=== PATIENT | male | born 1955 | race Caucasian/White ===

== ENCOUNTER 2017-11-20 06:51 | Emergency (ER) | payer BC ==
[2017-11-20] MEDS ORDERED: TETRACAINE HCL 0.5% 2ML OPTH ONE (07:01)
[2017-11-20] MEDS ORDERED: FLUORESCEIN SODIUM 0.6 MG/WRAP ONE (07:01)
[2017-11-20] MEDS ORDERED: TETANUS & DIPHTHERIA TOX,ADULT 0.5 ML VIAL ONE (07:02)
--- NOTE | 2017-11-20 07:18 | ER ---
Nurse's Notes [facility] Name: Koffi Ga Age: 62 yrs Sex: Male : 1955 Arrival Date: 11/20/2017 Time: 06:53 Bed 16 Private MD: Diagnosis: Injury of conjunctiva and corneal abrasion without foreign body Presentation: 11/20 07:04 Presenting complaint: Patient states: he was working in the yard yesterday and got bb something in his right eye, eye is still scratchy and reddened today. Transition of care: patient was not received from another setting of care. Onset of symptoms was November 19, 2017. Risk Assessment: Do you want to hurt yourself or someone else? Patient reports no desire to harm self or others. Initial Sepsis Screen: Does the patient meet any 2 criteria? No. Patient's initial sepsis screen is negative. Does the patient have a suspected source of infection? No. Patient's initial sepsis screen is negative. Care prior to arrival: None. 07:04 Method Of Arrival: Ambulatory bb 07:04 Acuity: KAMILA 4 bb Historical: - Allergies: 07:10 No Known Allergies; bb - Home Meds: 07:10 uridiol [Active]; levothyroxine oral [Active]; Nexium Oral [Active]; chondroitin bb glucosamine [Active]; tumeric [Active]; - PMHx: 07:10 Hypothyroidism; biliary cirrhosis; Cataracts; bb - PSHx: 07:10 thyroid surgery; Cholecystectomy; Tonsillectomy; orichectomy; elbow; Knee surgery; jaw; bb shoulder; - Immunization history:: Adult Immunizations up to date. - Social history:: Smoking status: Patient/guardian denies using tobacco, Patient uses alcohol, occasionally. Patient/guardian denies using street drugs. - Ebola Screening: : No symptoms or risks identified at this time. Screenin:30 Abuse screen: Denies threats or abuse. Denies injuries from another. Nutritional ph screening: No deficits noted. Tuberculosis screening: No symptoms or risk factors identified. Fall Risk None identified. Assessment: 07:15 General: Appears in no apparent distress. uncomfortable, well groomed, Behavior is ph calm, cooperative, appropriate for age. Pain: Complains of pain in right eye. Neuro: Level of Consciousness is awake, alert, obeys commands, Oriented to person, place, time, situation. Cardiovascular: Capillary refill < 3 seconds Patient's skin is warm and dry. Respiratory: Airway is patent Respiratory effort is even, unlabored, Respiratory pattern is regular, symmetrical. EENT: Eyes are tearing on right eye Sclera/Cornea are reddened in right eye. Derm: Skin is intact, is healthy with good turgor, Skin is pink, warm \T\ dry. Musculoskeletal: Circulation, motion, and sensation intact. Range of motion: intact in all extremities. Vital Signs: 07:10 BP 134 / 75; Pulse 57; Resp 16 S; Temp 98.6(O); Pulse Ox 98% on R/A; Weight 117.93 kg bb (R); Height 6 ft. 0 in. (182.88 cm) (R); Pain 2/10; 07:10 Body Mass Index 35.26 (117.93 kg, 182.88 cm) bb Visual Acuity: 07:10 Left Eye Visual acuity 20/20, Pupil size 4 mm, ; Right Eye Visual acuity 20/100, Pupil bb size 4 mm, ; Both Eyes Visual acuity 20/25; With Lenses; ED Course: 06:53 Patient arrived in ED. es 06:55 Maria Del Carmen Rock FNP-C [facility]. snw 06:55 Zachary Prado MD is Attending Physician. snw 07:05 Triage completed. bb 07:05 Assist provider with eye exam of right eye. using fluorescein stain, Performed by homero MINOR Patient tolerated well. 07:10 Arm band placed on Patient placed in an exam room, on a stretcher, on pulse oximetry. bb Family accompanied patient. 07:17 Gretta Barrera MD is Referral Physician. snw 07:19 France Adan RN is Primary Nurse. ph 07:31 Patient has correct armband on for positive identification. Bed in low position. Call ph light in reach. Side rails up X 1. Pulse ox on. NIBP on. 07:36 Patient did not have IV access during this emergency room visit. 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 Exp: ao 01/17/2020. Lot #: [id number]. } Route: IM; Site: left deltoid; 07:30 Follow up: Response: No adverse reaction ph 07:08 Drug: Tetracaine Drops 0.5 % 1 drops {Note: By NP. Maria Del Carmen} Route: Ophthalmic; Site: ao right eye; 07:30 Follow up: Response: No adverse reaction ph 07:08 Drug: Fluorescein Strip 1 strip {Note: By BAKARI Joyce.} Route: Ophthalmic; Site: right ao eye; 07:29 Follow up: Response: No adverse reaction ph 07:29 Drug: ERYTHromycin Ointment 1 application Route: Ophthalmic; Site: right eye; ph 07:30 Follow up: Response: No adverse reaction ph Outcome: 07:17 Discharge ordered by MD. snw 07:36 Discharged to home ambulatory, with significant other. ph 07:36 Condition: good 07:36 Discharge instructions given to patient, Instructed on discharge instructions, follow up and referral plans. medication usage, Demonstrated understanding of instructions, follow-up care, medications, Prescriptions given X 2. 07:36 Patient left the ED. ph Signatures: Maria Del Carmen Rock, REGISTERED NURSE CARDIAC TELEMETRY-C REGISTERED NURSE CARDIAC TELEMETRY-Csnw Janna Snell Brenda, RN RN France Garza RN RN ph Damien Shepard RN RN ao
--- NOTE | 2017-11-20 07:18 | EDPHYS ---
Physician Documentation [facility] Name: Koffi Ga Age: 62 yrs Sex: Male : 1955 Arrival Date: 11/20/2017 Time: 06:53 Bed 16 Private MD: ED Physician Zachary Prado HPI: 11/20 07:15 This 62 yrs old Male presents to ER via Ambulatory with complaints of right snw eye irritation. 07:15 The patient is experiencing foreign body sensation, pain, redness, tearing, The patient snw sustained Unknown. to the right eye, caused by debris, dust. Onset: The symptoms/episode began/occurred suddenly, yesterday, and became persistent. Duration: the symptoms are continuous. Aggravated by nothing. Alleviated by nothing. Associated signs and symptoms: Pertinent positives: None. Patient wears glasses. Severity of symptoms: At their worst the symptoms were moderate. The patient has not experienced similar symptoms in the past. It is unknown whether or not the patient has recently seen a physician. Historical: - Allergies: 07:10 No Known Allergies; bb - Home Meds: 07:10 uridiol [Active]; levothyroxine oral [Active]; Nexium Oral [Active]; chondroitin bb glucosamine [Active]; tumeric [Active]; - PMHx: 07:10 Hypothyroidism; biliary cirrhosis; Cataracts; bb - PSHx: 07:10 thyroid surgery; Cholecystectomy; Tonsillectomy; orichectomy; elbow; Knee surgery; jaw; bb shoulder; - Immunization history:: Adult Immunizations up to date. - Social history:: Smoking status: Patient/guardian denies using tobacco, Patient uses alcohol, occasionally. Patient/guardian denies using street drugs. - Ebola Screening: : No symptoms or risks identified at this time. ROS: 07:13 Constitutional: Negative for fever, chills, and weight loss, ENT: Negative for injury, snw pain, and discharge, Neck: Negative for injury, pain, and swelling, Cardiovascular: Negative for chest pain, palpitations, and edema, Respiratory: Negative for shortness of breath, cough, wheezing, and pleuritic chest pain, Abdomen/GI: Negative for abdominal pain, nausea, vomiting, diarrhea, and constipation, Back: Negative for injury and pain, : Negative for injury, bleeding, discharge, and swelling, MS/Extremity: Negative for injury and deformity, Skin: Negative for injury, rash, and discoloration, Neuro: Negative for headache, weakness, numbness, tingling, and seizure, Psych: Negative for depression, anxiety, suicide ideation, homicidal ideation, and hallucinations. 07:13 Eyes: Positive for foreign body sensation, redness, tearing, of the iris of right eye. Exam: 07:13 Constitutional: This is a well developed, well nourished patient who is awake, alert, snw and in no acute distress. Head/Face: Normocephalic, atraumatic. ENT: Nares patent. No nasal discharge, no septal abnormalities noted. Tympanic membranes are normal and external auditory canals are clear. Oropharynx with no redness, swelling, or masses, exudates, or evidence of obstruction, uvula midline. Mucous membranes moist. Neck: Trachea midline, no thyromegaly or masses palpated, and no cervical lymphadenopathy. Supple, full range of motion without nuchal rigidity, or vertebral point tenderness. No Meningismus. Chest/axilla: Normal chest wall appearance and motion. Nontender with no deformity. No lesions are appreciated. Cardiovascular: Regular rate and rhythm with a normal S1 and S2. No gallops, murmurs, or rubs. Normal PMI, no JVD. No pulse deficits. Respiratory: Lungs have equal breath sounds bilaterally, clear to auscultation and percussion. No rales, rhonchi or wheezes noted. No increased work of breathing, no retractions or nasal flaring. Abdomen/GI: Soft, non-tender, with normal bowel sounds. No distension or tympany. No guarding or rebound. No evidence of tenderness throughout. Back: No spinal tenderness. No costovertebral tenderness. Full range of motion. Skin: Warm, dry with normal turgor. Normal color with no rashes, no lesions, and no evidence of cellulitis. MS/ Extremity: Pulses equal, no cyanosis. Neurovascular intact. Full, normal range of motion. Neuro: Awake and alert, GCS 15, oriented to person, place, time, and situation. Cranial nerves II-XII grossly intact. Motor strength 5/5 in all extremities. Sensory grossly intact. Cerebellar exam normal. Normal gait. 07:13 Eyes: Periorbital structures: appear normal, Pupils: no acute changes, Extraocular movements: no acute changes, Conjunctiva: injected, in the right eye, Corneas: abrasion, that is small, over pupil, Sclera: no appreciated abnormality, Lids and lashes: appear normal. Vital Signs: 07:10 BP 134 / 75; Pulse 57; Resp 16 S; Temp 98.6(O); Pulse Ox 98% on R/A; Weight 117.93 kg bb (R); Height 6 ft. 0 in. (182.88 cm) (R); Pain 2/10; 07:10 Body Mass Index 35.26 (117.93 kg, 182.88 cm) bb Visual Acuity: 07:10 Left Eye Visual acuity 20/20, Pupil size 4 mm, ; Right Eye Visual acuity 20/100, Pupil bb size 4 mm, ; Both Eyes Visual acuity 20/25; With Lenses; Procedures: 07:23 Eye Exam: Tetracaine. snw 07:23 Eye Exam: abrasion over cornea to right. snw MDM: 06:55 Patient medically screened. snw 07:22 Data reviewed: vital signs, nurses notes. Data interpreted: Pulse oximetry: on room air snw is 98 %. Interpretation: normal. Counseling: I had a detailed discussion with the patient and/or guardian regarding: the historical points, exam findings, and any diagnostic results supporting the discharge/admit diagnosis, the need for outpatient follow up, to return to the emergency department if symptoms worsen or persist or if there are any questions or concerns that arise at home. Special discussion: I discussed in detail with the patient the higher chance of wound infection based on his presenting history. Based on the history and exam findings, there is no indication for further emergent testing or inpatient evaluation. I discussed with the patient/guardian the need to see the opthamologist for further evaluation of the symptoms. 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 Exp: ao 01/17/2020. Lot #: [id number]. } Route: IM; Site: left deltoid; 07:30 Follow up: Response: No adverse reaction ph 07:08 Drug: Tetracaine Drops 0.5 % 1 drops {Note: By BAKARI Joyce.} Route: Ophthalmic; Site: ao right eye; 07:30 Follow up: Response: No adverse reaction ph 07:08 Drug: Fluorescein Strip 1 strip {Note: By BAKARI Joyce.} Route: Ophthalmic; Site: right ao eye; 07:29 Follow up: Response: No adverse reaction ph 07:29 Drug: ERYTHromycin Ointment 1 application Route: Ophthalmic; Site: right eye; ph 07:30 Follow up: Response: No adverse reaction ph Disposition: 11/20/17 07:17 Discharged to Home. Impression: Injury of conjunctiva and corneal abrasion without foreign body. - Condition is Stable. - Discharge Instructions: Corneal Abrasion, VIS, Tetanus, Diphtheria (Td) - [facility]. - Prescriptions for Vigamox 0.5 % Ophthalmic Drops - instill 1 drop by OPHTHALMIC route every 8 hours for 7 days; 5 milliliter. Diclofenac Sodium 75 mg Oral Tablet Sustained Release - take 1 tablet by ORAL route 2 times per day; 30 tablet. - Work release form, Medication Reconciliation Form, Thank You Letter, Antibiotic Education, Prescription Opioid Use form. - Follow up: Gretta Barrera MD; When: 24 Hours; Reason: Recheck today's complaints, Continuance of care. Signatures: Maria Del Carmen Rock, EXTENSION EDUCATOR-C EXTENSION EDUCATOR-Csnw Deysi Baptiste RN RN bb France Adan RN RN ph Damien Shepard RN RN ao Corrections: (The following items were deleted from the chart) 07:36 07:17 11/20/2017 07:17 Discharged to Home. Impression: Injury of conjunctiva and ph corneal abrasion without foreign body. Condition is Stable. Forms are Medication Reconciliation Form, Thank You Letter, Antibiotic Education, Prescription Opioid Use. Follow up: Gretta Barrera; When: 24 Hours; Reason: Recheck today's complaints, Continuance of care. snw
[2017-11-20] MEDS ORDERED: NEO/BAC/POLY/HC OPTH OINT ONE (07:26)
== END 2017-11-20 07:36 | disposition home or self-care (01) ==
LOC: ER 06:51
DX: S05.01XA Injury of conjunctiva and corneal abrasion without foreign body, right eye, initial encounter (principal); X58.XXXA Exposure to other specified factors, initial encounter; Y93.9 Activity, unspecified; Y92.9 Unspecified place or not applicable; E03.9 Hypothyroidism, unspecified; K74.5 Biliary cirrhosis, unspecified
CPT/HCPCS: 90714; 99284

== ENCOUNTER → 2020-08-29 | Day surgery (SDC) | payer BC, OTHER ==
--- NOTE | 2020-08-29 13:40 | RAD REPORT ---
EXAM DESCRIPTION: US - Biopsy Lymph Node - 08/29/2020 1:30 pm CLINICAL HISTORY: ICD R 59.0 COMPARISON: July 2020 ultrasound TECHNIQUE: The risks, benefits and alternatives to the procedure were explained to the patient and i nformed consent obtained. Skin and subcutaneous tissues anesthetized with lidocaine. Under sonographic guidance, a 17 gauge needle was placed into the hypoechoic area within an enlarged left axillary lymph node. Four 1 to 2 centimeter core specimens were obtained The tissue was given to pathology. Patient experienced no immediate complication IMPRESSION: Core biopsies of an enlarged left axillary lymph node
== END ==
LOC: DS 09:34
PROVIDERS: ATTEND Surgery
DX: R59.0 Localized enlarged lymph nodes (principal)
CPT/HCPCS: 38505; 76942; 88305

== ENCOUNTER 2021-07-18 07:39 | Day surgery (SDC) | payer BC, OTHER ==
[2021-07-18 08:04] LABS: Absolute Lymphocytes (CBC) 45.2 K/uL (0.7-4.9); Hematocrit 37.1 % (39.6-49.0); Lymphocytes % 92.4 % (15.3-44.8); MPV 6.8 fL (7.6-11.3); RBC Red Blood Cell Count 4.15 M/uL (4.33-5.43)
[2021-07-18] MEDS ORDERED: CEFAZOLIN SODIUM 1 GM/VIAL ONE (08:11)
[2021-07-18] MEDS ORDERED: Ringers Lactate 1,000 ML IV ONE (08:11)
[2021-07-18 08:20] LABS: Potassium 4.5 mmol/L (3.5-5.1)
--- NOTE | 2021-07-18 08:34 | RAD REPORT ---
EXAM DESCRIPTION: RAD - Chest Pa And Lat (2 Views) - 07/18/2021 8:23 am CLINICAL HISTORY: PREOP, STAT, SAME DAY SURGERY, BED 7 COMPARISON: No comparisonsChest Pa And Lat (2 Views) dated 03/20/2017; Chest Pa And Lat (2 Views) sedrick ed 01/01/2017; Chest Single View dated 10/30/2016; Chest Pa And Lat (2 Views) dated 10/25/2016 FINDINGS: Lines: None. Lungs: No evidence of edema or pneumonia. Pleural: No significant pleural effusions or pneumothorax. Cardiac: The heart size is within normal limits. Bones: No acute fractures. Other: IMPRESSION: No acute cardiopulmonary disease.
--- NOTE | 2021-07-18 09:09 | EKG ---
Test Date: 2021-07-18 Test Time: 08:10:19 Turret Lathe Tender: NIRALI MEASUREMENT RESULTS: Intervals: Rate: 70 TN: 180 QRSD: 98 QT: 416 QTc: 449 [place]: P: 73 TN: 180 QRS: 50 T: 66 INTERPRETIVE STATEMENTS: Sinus rhythm with occasional premature ventricular complexes Otherwise normal ECG Compared to ECG 10/26/2010 08:46:15 Ventricular premature complex(es) now present Sinus bradycardia no longer present Electronically Signed On 07-18-21 09:08:55 [employer] by Clive Deluna
[2021-07-18 09:54] LABS: Blood Morphology Comment NOT SEEN (NOT SEEN); Platelet Estimate ADEQ
[2021-07-18] MEDS ORDERED: BUPIVACAINE 0.5% PF 10 ML VIAL ONE (10:22)
[2021-07-18] MEDS ORDERED: FENTANYL CITR 100 MCG/2 ML ONE (10:37)
[2021-07-18] MEDS ORDERED: ONDANSETRON 4 MG/2 ML VIAL ONE (10:37)
[2021-07-18] MEDS ORDERED: MIDAZOLAM HCL 2 MG/2 ML INJ ONE (10:37)
[2021-07-18] MEDS ORDERED: propofoL 200 MG/20 ML VIAL IV ONE (10:37)
[2021-07-18] MEDS ORDERED: LIDOCAINE 2% MPF 5 ML VIAL ONE (11:14)
[2021-07-18] MEDS ORDERED: Mastisol Adhesive Liq ONE (11:14)
[2021-07-18] MEDS ORDERED: CODEINE 30MG/APAP 300MG TAB ONE (12:32)
[2021-07-18 12:54] VITALS: BP 118/70; TEMP 97.8; O2SAT 98
--- NOTE | 2021-07-19 00:44 | OP ---
Date of Procedure: 07/18/2021 Surgeon: Sergey Cardenas MD Brand Director: None. Preoperative Diagnoses: Generalized lymphadenopathy and history of chronic lymphotic leukemia. Postoperative Diagnoses: Generalized lymphadenopathy and history of chronic lymphotic leukemia. Procedure: Incisional biopsy of left axillary mass/lymph node. Estimated Blood Loss: Minimal. Specimen: Left axillary mass. Findings: Lymphatic tissue, enlarged lymph node. Anesthesia: General. Complications: None. The patient tolerated the procedure in stable condition and taken to Recovery in good general condition. Description Of Procedure: The patient was brought to the OR and placed in supine position. General anesthesia was begun. The patient was prepped and draped in the usual sterile fashion. Marcaine 0.5 % was infiltrated locally. The patient had a large approximately 8 x 10 cm soft mass in the left axi lla. A 3 cm incision was made and subcutaneous tissue divided and deep to the subcutaneous tissue, a large mass identified and incisional biopsy of approximately 3 x 2 cm done and sent to Pathology. T ouch prep revealed it to be lymphatic tissue consistent with probable lymphoma. Wound was irrigated, bleeding controlled with cautery and Surgicel placed and then 2-0 chromic used to approximate subcut aneous tissue, and 3-0 chromic used to close skin. Sterile dressing was applied. The patient was aw akened and taken to Recovery in good general condition. Discharge Note: The patient will go to day surgery and home when stable. Disposition: Home. Condition: Stable. Discharge Instructions: Resume home medications and diet. Activity as tolerated. No heavy lifting. Remove outer dressing in 2 days. Shower. Keep wound clean, dry. Keep Steri-Strips on at all time s. Follow up in my office in 2 weeks, call for appointment. Follow up with Dr. Garzon in 1 week. Tyl enol No.3 one tablet p.o. q.4 p.r.n. pain. /MODL Voice ID: [id number] Report ID: [id number]
== END 2021-07-18 12:44 | disposition home or self-care (01) ==
LOC: OR 07:39
PROVIDERS: ATTEND Surgery
PROC: 07B60ZX Excision of Left Axillary Lymphatic, Open Approach, Diagnostic (ICD-10-PCS; principal; 2021-07-18 10:45)
DX: R59.1 Generalized enlarged lymph nodes (principal); Z85.6 Personal history of leukemia; U07.1 COVID-19
CPT/HCPCS: 93005; 85025; 80048; 36415; 88305; 88333; 71046; 38500; U0003; J2704; J2250; J3010; J7120; J2405; J0690